=== PATIENT | female | born 2000 | race Caucasian/White ===

== ENCOUNTER 2022-08-11 08:46 | Observation (INO) ==
[2022-08-11 10:11] LABS: ABS Basophils 0.1 10^3/ul (0-0.2); ABS Eosinophils 0.2 10^3/ul (0-0.6); ABS Lymphocytes 2.4 10^3/ul (1.0-4.8); ABS Monocytes 0.6 10^3/ul (0-0.8); ABS Neutrophils 5.9 10^3/ul (1.5-7.7); Hematocrit 43 % (35-47); Hemoglobin 15.3 g/dL (12.0-16.0); Lymphocyte % 25.8 %; Mean Corpuscular HGB Conc 35 g/dL (31-36); Mean Corpuscular Hemoglobin 30 pg (27-31); Mean Corpuscular Volume 85 fL (80-97); Mean Platelet Volume 9.5 fL (7.4-10.4); Nucleated Red Blood Cells % 0.1; Platelet Count 11 10^3/uL (150-450); Red Cell Distribution Width 12 % (10-15); White Blood Count 9.1 10^3/uL (3.5-10.8)
[2022-08-11 10:50] LABS: Albumin 3.9 g/dL (3.2-5.2); Albumin/Globulin Ratio 1.5 (1-3); Calcium 8.8 mg/dL (8.6-10.3); Creatinine, Serum 0.74 mg/dL (0.51-0.95); Globulin 2.6 g/dL (2-4); Potassium 3.8 mmol/L (3.5-5.0); Total Bilirubin 0.3 mg/dL (0.2-1.0); Total Protein 6.5 g/dL (6.4-8.9)
[2022-08-11 11:41] LABS: TSH Ultra Thyroid Stim Horm 2.54 mcIU/mL (0.34-5.60)
[2022-08-11 11:48] LABS: Activated Partial Thrombo Time 26.1 seconds (26.0-38.0); INR 1.03 (0.88-1.18)
[2022-08-11 11:52] LABS: Folate 10.76 ng/mL (5.90-24.80)
[2022-08-11] MEDS ORDERED: Dexamethasone IV 40 MG in NS 0.9% 50 ML 50 ML IVPB SCH ×2 (12:00→13:00)
[2022-08-11] MEDS: Pantoprazole VIAL 40 MG VIAL IV SCH (13:52)
[2022-08-11 15:04] LABS: ABS Basophils 0.1 10^3/ul (0-0.2); ABS Lymphocytes 1.4 10^3/ul (1.0-4.8); ABS Monocytes 0.3 10^3/ul (0-0.8); ABS Neutrophils 11.9 10^3/ul (1.5-7.7); Eosinophil % 0.3 %; Hematocrit 41 % (35-47); Hemoglobin 14.3 g/dL (12.0-16.0); Lymphocyte % 10.1 %; Mean Corpuscular HGB Conc 35 g/dL (31-36); Mean Corpuscular Hemoglobin 30 pg (27-31); Mean Corpuscular Volume 85 fL (80-97); Mean Platelet Volume 9.4 fL (7.4-10.4); Nucleated Red Blood Cells % 0.1; Platelet Count 15 10^3/uL (150-450); Red Blood Count 4.81 10^6 /uL (3.70-4.87); Red Cell Distribution Width 12 % (10-15); White Blood Count 13.7 10^3/uL (3.5-10.8)
[2022-08-11 15:13] LABS: Activated Partial Thrombo Time 25.2 seconds (26.0-38.0)
[2022-08-11 20:20] LABS: ABS Lymphocytes 0.8 10^3/ul (1.0-4.8); ABS Monocytes 0.1 10^3/ul (0-0.8); ABS Neutrophils 11.1 10^3/ul (1.5-7.7); Hematocrit 42 % (35-47); Hemoglobin 14.6 g/dL (12.0-16.0); Lymphocyte % 6.3 %; Mean Corpuscular HGB Conc 35 g/dL (31-36); Mean Corpuscular Hemoglobin 30 pg (27-31); Mean Corpuscular Volume 86 fL (80-97); Mean Platelet Volume 9.4 fL (7.4-10.4); Platelet Count 16 10^3/uL (150-450); Red Blood Count 4.94 10^6 /uL (3.70-4.87); Red Cell Distribution Width 12 % (10-15)
[2022-08-11] MEDS ORDERED: Saline NASAL SPRAY 0.65% BTL BOTH NARES PRN (22:28)
[2022-08-11] MEDS ORDERED: MILI PO SCH (23:30)
[2022-08-12 06:13] LABS: ABS Lymphocytes 1.1 10^3/ul (1.0-4.8); ABS Monocytes 0.3 10^3/ul (0-0.8); ABS Neutrophils 10.5 10^3/ul (1.5-7.7); Hematocrit 42 % (35-47); Hemoglobin 14.5 g/dL (12.0-16.0); Lymphocyte % 8.9 %; Mean Corpuscular HGB Conc 35 g/dL (31-36); Mean Corpuscular Hemoglobin 30 pg (27-31); Mean Corpuscular Volume 86 fL (80-97); Mean Platelet Volume 10.5 fL (7.4-10.4); Platelet Count 25 10^3/uL (150-450); Red Blood Count 4.89 10^6 /uL (3.70-4.87); Red Cell Distribution Width 12 % (10-15); White Blood Count 11.9 10^3/uL (3.5-10.8)
[2022-08-12 06:27] LABS: Albumin/Globulin Ratio 1.7 (1-3); Calcium 9.3 mg/dL (8.6-10.3); Creatinine, Serum 0.59 mg/dL (0.51-0.95); Globulin 2.3 g/dL (2-4); Potassium 4.3 mmol/L (3.5-5.0); Total Bilirubin 0.2 mg/dL (0.2-1.0); Total Protein 6.3 g/dL (6.4-8.9); eGFR CKD-EPI 131.4 (>60)
[2022-08-12] MEDS: Pantoprazole VIAL 40 MG VIAL IV SCH (09:05)
[2022-08-12 12:12] LABS: HIV 4th Generation Nonreactive (Nonreactive)
[2022-08-12 12:19] LABS: Hepatitis C Antibody Negative (Negative)
[2022-08-12] MEDS ORDERED: Dexamethasone IV 40 MG in NS 0.9% 50 ML 50 ML IVPB SCH (13:00)
[2022-08-12 14:03] VITALS: BP 112/70
[2022-08-15 11:50] LABS: Methylmalonic Acid 0.15 nmol/mL (<=0.40)
[2022-08-15 15:48] LABS: Anaplasma phagocytophilum Negative (Negative); B. miyamotoi PCR, B Negative (Negative); Babesia divergens/MO-1 Negative (Negative); Babesia ducani Negative (Negative); Ehrlichia chaffeensis Negative (Negative); Ehrlichia ewingii/canis Negative (Negative); Ehrlichia muris eauclairensis Negative (Negative)
== END 2022-08-12 14:52 | disposition home or self-care (01) ==
LOC: ED 08:46 → EDHOLD 08:46 → MED 15:16
PROVIDERS: ADMIT Hospitalist; ATTEND Hospitalist

== ENCOUNTER 2022-10-02 19:35 | Observation (INO) ==
[2022-10-02] MEDS ORDERED: Lactated Ringers 1000 ml BAG 1,000 ML IV ONE (19:44)
[2022-10-02] MEDS ORDERED: Cefepime 1 GM in Dextrose 1 GM/50 ML BAG IV ONE (19:44)
[2022-10-02] MEDS ORDERED: Vancomycin 1,000 MG in NS 0.9% 250 ml 250 ML IVPB ONE ×2 (20:30→21:38)
[2022-10-02 20:44] LABS: ABS Basophils 0.1 10^3/uL (0.0-0.1); ABS Eosinophils 0.1 10^3/uL (0.0-0.5); ABS Lymphocytes 1.1 10^3/uL (1.0-4.8); ABS Monocytes 1.1 10^3/uL (0.0-0.9); ABS Neutrophils 17.8 10^3/uL (1.5-7.6); Eosinophil % 0.5 %; Hematocrit 42.2 % (35-45); Hemoglobin 14.2 g/dL (11.5-14.3); Lymphocyte % 5.3 %; Mean Corpuscular Hemoglobin 29.9 pg (27-33); Mean Corpuscular Hgb Conc 33.7 g/dL (31-36); Mean Corpuscular Volume 88.6 fL (80-97); Mean Platelet Volume 8.8 fL (7.5-11.2); Platelet Count 41 10^3/uL (150-450); Red Blood Count 4.77 10^6/uL (3.63-4.92); Red Cell Distribution Width 15.3 % (12-17); White Blood Count 20.1 10^3/uL (3.8-11.8)
[2022-10-02 20:47] LABS: INR 1.05 (0.88-1.18)
[2022-10-02] MEDS ORDERED: LORazepam 2 mg VIAL 1 ml IV PUSH ONE (20:47)
[2022-10-02] MEDS ORDERED: Lorazepam PYXIS KEY PRN (20:47)
[2022-10-02 21:07] LABS: Albumin/Globulin Ratio 1.9 (1-3); CRP High Sensitivity 19.3 mg/L (<2.00); Calcium 8.8 mg/dL (8.6-10.3); Creatinine, Serum 0.9 mg/dL (0.51-0.95); Globulin 2.1 g/dL (2-4); Potassium 3.7 mmol/L (3.5-5.0); Total Bilirubin 0.9 mg/dL (0.2-1.0); Total Protein 6.1 g/dL (6.4-8.9); eGFR CKD-EPI 93.3 (>60)
[2022-10-02] MEDS ORDERED: Ondansetron 4 mg VIAL 2 MG/ML 2 ml VIAL IV ONE (21:35)
[2022-10-02] MEDS ORDERED: Ondansetron 4 mg VIAL 2 MG/ML 2 ml VIAL IV PRN (21:39)
[2022-10-02] MEDS ORDERED: Vancomycin per Pharmacy 1 EA NOTE FOLLOW UP SCH (22:00)
[2022-10-02] MEDS: Pantoprazole VIAL 40 MG VIAL IV SCH (23:34)
[2022-10-02] MEDS: Hydrocortisone INJ 100 MG/2ML 2 ML VIAL IV SCH (23:35)
[2022-10-02 23:40] LABS: C Reactive Protein 17.86 mg/L (<8.01)
[2022-10-02] MEDS: Clindamycin 600 MG/D5W BAG 600 MG/50 ML BAG IV SCH (23:44)
[2022-10-03] MEDS: Potassium Chloride IV 40 MEQ in Lactated Ringers 1000 ml BAG 1,000 ML IVPB SCH ×4 (00:16→16:02)
[2022-10-03 06:09] LABS: Hematocrit 36.8 % (35-45); Hemoglobin 12.6 g/dL (11.5-14.3); Mean Corpuscular Hemoglobin 30.1 pg (27-33); Mean Corpuscular Hgb Conc 34.1 g/dL (31-36); Mean Corpuscular Volume 88.1 fL (80-97); Red Blood Count 4.18 10^6/uL (3.63-4.92); Red Cell Distribution Width 15.5 % (12-17); White Blood Count 20.3 10^3/uL (3.8-11.8)
[2022-10-03] MEDS: Clindamycin 600 MG/D5W BAG 600 MG/50 ML BAG IV SCH ×2 (06:18→16:29)
[2022-10-03] MEDS: Hydrocortisone INJ 100 MG/2ML 2 ML VIAL IV SCH ×2 (06:19→16:39)
[2022-10-03 06:36] LABS: Calcium 8.1 mg/dL (8.6-10.3); Creatinine, Serum 0.81 mg/dL (0.51-0.95); Potassium 4.4 mmol/L (3.5-5.0); eGFR CKD-EPI 105.8 (>60)
[2022-10-03] MEDS: Vancomycin 1000 MG in NS 0.9% 250 ML IVPB SCH ×2 (07:46→16:29)
[2022-10-03 08:27] LABS: ABS Basophils 0.1 10^3/uL (0.0-0.1); ABS Lymphocytes 0.4 10^3/uL (1.0-4.8); ABS Monocytes 0.7 10^3/uL (0.0-0.9); Eosinophil % 0.1 %; Lymphocyte % 2.2 %; Mean Platelet Volume 8.3 fL (7.5-11.2); Platelet Count 31 10^3/uL (150-450)
[2022-10-03 12:08] LABS: Magnesium 1.8 mg/dL (1.9-2.7)
[2022-10-03] MEDS ORDERED: Magnesium Sulfate 2 gm BAG 2 GM/50 ML BAG IVPB ONE (12:28)
[2022-10-03] MEDS: Pantoprazole VIAL 40 MG VIAL IV SCH (12:37)
[2022-10-03] MEDS ORDERED: ceFAZolin 2 GM PREMIX 2 GM/50 ML BAG IV SCH (17:00)
[2022-10-03 19:17] LABS: Urine Appearance Clear; Urine Bilirubin Negative (Negative); Urine Blood 1+ (Negative); Urine Color Straw; Urine Glucose Negative (Negative); Urine Ketones Negative (Negative); Urine Nitrite Negative (Negative); Urine Protein Negative (Negative); Urine Specific Gravity 1.006 (1.002-1.030); Urine Urobilinogen Negative (Negative)
[2022-10-03 19:19] LABS: Urine Bacteria Absent (Absent); Urine Red Blood Cell 1+(3-5/hpf) (Absent); Urine Squamous Epithelial Cell Present (Absent); Urine White Blood Cell Trace(0-5/hpf) (Absent)
[2022-10-03] MEDS: ceFAZolin 2 GM PREMIX 2 GM/50 ML BAG IV SCH (19:39)
[2022-10-03] MEDS: Lactated Ringers 1000 ml BAG 1,000 ML IV SCH (19:39)
[2022-10-03] MEDS ORDERED: ceFAZolin 2 GM in NS PREMIX 2 GM/100 ML BAG IVPB SCH (21:00)
[2022-10-03] MEDS ORDERED: Hydrocortisone INJ 100 MG VIAL IV SCH (22:00)
[2022-10-04] MEDS: ceFAZolin 2 GM PREMIX 2 GM/50 ML BAG IV SCH ×2 (02:34→10:01)
[2022-10-04] MEDS: Lactated Ringers 1000 ml BAG 1,000 ML IV SCH (04:02)
[2022-10-04] MEDS ORDERED: Vancomycin Trough Check NOTE FOLLOW UP ONE (05:30)
[2022-10-04 06:09] LABS: Platelet Count, Citrated 39 10^3/ul (150-450)
[2022-10-04 06:11] LABS: ABS Basophils 0.1 10^3/uL (0.0-0.1); ABS Eosinophils 0.1 10^3/uL (0.0-0.5); ABS Lymphocytes 1.4 10^3/uL (1.0-4.8); ABS Neutrophils 13.8 10^3/uL (1.5-7.6); ABS Nucleated RBC 0.01 10^3/ul; Eosinophil % 0.4 %; Hematocrit 32.8 % (35-45); Hemoglobin 11.4 g/dL (11.5-14.3); Lymphocyte % 8.6 %; Mean Corpuscular Hemoglobin 30.7 pg (27-33); Mean Corpuscular Hgb Conc 34.6 g/dL (31-36); Mean Corpuscular Volume 88.8 fL (80-97); Mean Platelet Volume 9.9 fL (7.5-11.2); Platelet Count 42 10^3/uL (150-450); Red Cell Distribution Width 15.7 % (12-17); White Blood Count 16.4 10^3/uL (3.8-11.8)
[2022-10-04 06:36] LABS: Calcium 7.9 mg/dL (8.6-10.3); Creatinine, Serum 0.56 mg/dL (0.51-0.95); Potassium 3.6 mmol/L (3.5-5.0); eGFR CKD-EPI 133.1 (>60)
[2022-10-04] MEDS ORDERED: Potassium Chlor 20 meq TAB.ER PO SCH (08:00)
[2022-10-04] MEDS ORDERED: NORGESTIMATE PO SCH (09:00)
[2022-10-04] MEDS ORDERED: ETHINYL ESTRADIOL PO SCH (09:00)
[2022-10-04 09:58] VITALS: BP 132/80
[2022-10-04] MEDS: Pantoprazole VIAL 40 MG VIAL IV SCH (10:01)
== END 2022-10-04 12:45 | disposition home or self-care (01) ==
LOC: ED 19:35 → EDHOLD 19:35 → SUATTDRO 20:47 → MED 10-03 16:29
PROVIDERS: ADMIT Internal Medicine; ATTEND Internal Medicine

== ENCOUNTER 2022-10-21 17:54 | Observation (INO) ==
[2022-10-21] MEDS ORDERED: Dexamethasone IV 20 MG in NS 0.9% 50 ML 50 ML IVPB ONE (18:19)
[2022-10-21] MEDS ORDERED: cefTRIAXone 1 gm/50 mL D5W 1 GM/50 ML BAG IV SCH (18:30)
[2022-10-21] MEDS ORDERED: Immune Globulin IV Order (CPOE ENTRY PROTOCOL) IV SCH (19:00)
[2022-10-21] MEDS ORDERED: PRIVIGEN IV ONE (20:00)
[2022-10-21] MEDS ORDERED: IMMUNE GLOB IV ONE (20:00)
[2022-10-21] MEDS ORDERED: [UNRECOGNIZED DRUG - OTHER] IV ONE (20:00)
[2022-10-21] MEDS: NS 0.9% 1000 ml BAG 1,000 ML IV SCH (20:09)
[2022-10-21] MEDS: Potassium Chlor 20 meq TAB.ER PO SCH (20:43)
[2022-10-22] MEDS ORDERED: NORGESTIMATE ETHINYL ESTRADIOL PO SCH (02:30)
[2022-10-22] MEDS: NS 0.9% 1000 ml BAG 1,000 ML IV SCH (07:40)
[2022-10-22 08:07] LABS: ABS Lymphocytes 0.5 10^3/uL (1.0-4.8); ABS Monocytes 0.4 10^3/uL (0.0-0.9); ABS Neutrophils 1.8 10^3/uL (1.5-7.6); Hemoglobin 11.7 g/dL (11.5-14.3); Lymphocyte % 18.2 %; Mean Corpuscular Hemoglobin 31.1 pg (27-33); Mean Corpuscular Hgb Conc 35.4 g/dL (31-36); Mean Corpuscular Volume 87.9 fL (80-97); Mean Platelet Volume 11.3 fL (7.5-11.2); Nucleated Red Blood Cells % 0.1 /100 WBC (0.0-0.4); Platelet Count 29 10^3/uL (150-450); Red Blood Count 3.76 10^6/uL (3.63-4.92); Red Cell Distribution Width 14.5 % (12-17); White Blood Count 2.6 10^3/uL (3.8-11.8)
[2022-10-22 08:27] LABS: Albumin 3.2 g/dL (3.2-5.2); Albumin/Globulin Ratio 0.7 (1-3); Calcium 8.2 mg/dL (8.6-10.3); Creatinine, Serum 0.58 mg/dL (0.51-0.95); Globulin 4.6 g/dL (2-4); Total Bilirubin 0.8 mg/dL (0.2-1.0); Total Protein 7.8 g/dL (6.4-8.9)
[2022-10-22] MEDS ORDERED: Dexamethasone IV 20 MG in NS 0.9% 50 ML 50 ML IVPB ONE (08:29)
[2022-10-22] MEDS: Potassium Chlor 20 meq TAB.ER PO SCH (09:24)
[2022-10-22] MEDS ORDERED: IMMUNE GLOB IV ONE (09:30)
[2022-10-22] MEDS ORDERED: PRIVIGEN IV ONE (09:30)
[2022-10-22] MEDS ORDERED: [UNRECOGNIZED DRUG - OTHER] IV ONE (09:30)
[2022-10-22] MEDS ORDERED: CYCLOSPORINE 25 MG PO SCH (09:30)
[2022-10-22 16:19] VITALS: BP 116/63
[2022-10-23] MEDS ORDERED: Sulfamethox/Trimethoprim DS TAB 800/160 mg PO SCH (09:00)
[2022-10-25 18:54] LABS: Adenovirus Undetected (Undetected); Bordetella parapertussis Undetected (Undetected); Bordetella pertussis Undetected (Undetected); Chlamydophila pneumoniae Undetected (Undetected); Coronavirus 229E Undetected (Undetected); Coronavirus HKU1 Undetected (Undetected); Coronavirus NL63 Undetected (Undetected); Coronavirus OC43 Undetected (Undetected); Human Metapneumovirus Detected (Undetected); Human Rhinovirus/Enterovirus Undetected (Undetected); Influenza A Undetected (Undetected); Influenza B Undetected (Undetected); Mycoplasmoides pneumoniae Undetected (Undetected); Parainfluenza Virus 1 Undetected (Undetected); Parainfluenza Virus 2 Undetected (Undetected); Parainfluenza Virus 3 Undetected (Undetected); Parainfluenza Virus 4 Undetected (Undetected); Respiratory Syncytial Virus Undetected (Undetected); Specimen Source NASOPHARYNGEAL SWAB
== END 2022-10-22 16:35 | disposition home or self-care (01) ==
LOC: MEDTELE → INTOOBSV 17:54 → OBSVTOIN 17:54 → INTOOBSV 19:00 → OBSVTOIN 19:00
PROVIDERS: ADMIT Internal Medicine Hematology & Oncology; ATTEND Internal Medicine Hematology & Oncology